=== PATIENT | female | born 1965 | race Caucasian/White ===

== ENCOUNTER 2018-06-15 22:01 | Observation (INO) | payer BC, OTHER ==
[2018-06-15] MEDS ORDERED: MORPHINE SULFATE 10 MG/ML SOL IV ONE ×2 (22:16→23:14)
[2018-06-15 22:17] LABS: BASOPHILS % (AUTO) 1 % (0-3); EOSINOPHILS % (AUTO) 3 % (0-9); HEMATOCRIT 48 % (35-47); HEMOGLOBIN 15.6 gm/dl (12.0-15.5); LYMPHOCYTES % (AUTO) 27.2 % (10-50); MEAN CORPUSCULAR HEMOGLOBIN 28.4 pg (27.0-32.0); MEAN CORPUSCULAR HGB CONC 32.4 gm/dl (32.0-36.0); MEAN CORPUSCULAR VOLUME 88 fL (81-99); MONOCYTES % (AUTO) 5.9 % (0-12); NEUTROPHILS % (AUTO) 63.8 % (37-80)
[2018-06-15] MEDS ORDERED: MORPHINE SULFATE 10 MG/ML SOL ONE ×2 (22:17→23:16)
[2018-06-15 22:34] LABS: ALBUMIN 3.4 gm/dl (3.4-5.0); BILIRUBIN,TOTAL 0.3 mg/dl (0.2-1.0); CALCIUM 9.4 mg/dl (8.5-10.1); CARBON DIOXIDE 29.7 mEq/L (21-32); CREATININE 0.85 mg/dl (0.60-1.00); POTASSIUM 4.1 mMol/L (3.5-5.1); TOTAL PROTEIN 7.2 gm/dl (6.4-8.2); TROP I 0.361 ng/ml (0.000-0.056)
[2018-06-15] MEDS ORDERED: SODIUM CHLORIDE 0.9% 1000ML 1,000 ML IV ONE ×2 (22:47)
[2018-06-16] MEDS ORDERED: ISOSORBIDE MONONITRATE 30 MG TER PO SCH ×2 (01:15→09:00)
[2018-06-16] MEDS ORDERED: ISOSORBIDE MONONITRATE 30 MG TER PO ONE (01:22)
[2018-06-16] MEDS ORDERED: MORPHINE SULFATE 10 MG/ML SOL IV PRN (06:35)
[2018-06-16] MEDS: SODIUM CHLORIDE 0.9% FLUSH 10 ML SOL IV SCH ×3 (06:53→15:02)
[2018-06-16] MEDS ORDERED: FAMOTIDINE 20 MG TAB PO SCH (07:00)
[2018-06-16 07:35] VITALS: RESP 16
[2018-06-16] MEDS ORDERED: METOPROLOL TARTRATE 25 MG TAB PO SCH (09:00)
[2018-06-16] MEDS ORDERED: NICOTINE 21 MG PATCH TD SCH (09:00)
[2018-06-16] MEDS ORDERED: CLOPIDOGREL 75 MG TAB PO SCH (09:00)
[2018-06-16] MEDS ORDERED: ASPIRIN 81 MG CHEWABLE CTB PO SCH (09:00)
[2018-06-16] MEDS ORDERED: ALUMINUM/MAGNESIUM 30 ML SUS PO PRN (11:00)
[2018-06-16] MEDS ORDERED: LIDOCAINE HCL 2% (VISCOUS) 20 ML SOL MT ONE (11:00)
[2018-06-16] MEDS ORDERED: KETOROLAC TROMETHAMINE 30 MG/ML SOL IV ONE (14:32)
[2018-06-16 15:13] VITALS: BP 108/68; PULSE 89; TEMP 98.7; O2SAT 90
[2018-06-16] MEDS ORDERED: DIAZEPAM 5 MG TAB PO SCH (21:00)
[2018-06-16] MEDS ORDERED: RANITIDINE HCL 150 MG TAB PO SCH (21:00)
[2018-06-16] MEDS ORDERED: DIAZEPAM 2 MG PO SCH (21:00)
[2018-06-16] MEDS ORDERED: SERTRALINE HYDROCHLORIDE 50 MG TAB PO SCH (21:00)
[2018-06-16] MEDS ORDERED: ATORVASTATIN CALCIUM 80 MG TAB PO SCH (21:00)
== END 2018-06-16 16:55 | disposition home or self-care (01) ==
LOC: ED 22:01 → ACUTE CARE 06-16 01:48
PROVIDERS: ADMIT Surgery; ATTEND Surgery
DX: R07.9 Chest pain, unspecified (principal); Z72.0 Tobacco use; I25.10 Atherosclerotic heart disease of native coronary artery without angina pectoris
CPT/HCPCS: 36415; 71045; 71260; 80053; 84484; 85025; 93005; 93012; 99285; J1885; J2270; Q9967; A9270-GY